=== PATIENT | male | born 1975 | race Caucasian/White ===

== ENCOUNTER 2018-11-12 09:20 | Emergency (ER) | payer OTHER ==
[~2018-11-12] VITALS: Ht 180.3 cm; Wt 72.6 kg
[~2018-11-12 09:20] MED LIST: ANAPROX DS550 MG PO; CLINDAMYCIN150 MG PO; DAYPRO600 M1 PO; FLEXERIL5 MG PO; HYDROCODONE BIT1 T11 PO; KEFLEX500 MG PO; MOTRIN800 MG PO; Motrin,Rufen800 MG PO; NO DAILY MEDS; PERCOCET 325 MG1 TA7; ROBAXIN750 MG PO; TOBRADEX 0.1%-0.5 ML OPH; TRAMADOL HCL50 MG PO; ULTRAM50 MG PO
[2018-11-12] MEDS ORDERED: PREDNISONE20 M1 PO (12:02)
[2018-11-12] MEDS ORDERED: NAPROSYN500 MG PO (12:02)
== END 2018-11-12 10:03 | disposition home or self-care (01) ==
LOC: ED 09:20
DX: G56.01 Carpal tunnel syndrome, right upper limb (principal); F17.200 Nicotine dependence, unspecified, uncomplicated; Z88.0 Allergy status to penicillin

== ENCOUNTER → 2018-12-07 | Outpatient (CLI) | payer OTHER ==
[~2018-12-07] MED LIST changes: +NAPROSYN500 MG PO; +PREDNISONE20 M1 PO
== END | disposition home or self-care (01) ==
LOC: ORTHO 01:18
DX: M25.531 Pain in right wrist (principal); M25.532 Pain in left wrist; R20.0 Anesthesia of skin

== ENCOUNTER 2023-12-26 13:26 | Emergency (ER) | payer OTHER ==
[~2023-12-26] VITALS: Ht 180.3 cm; Wt 79.4 kg
[2023-12-26] MEDS ORDERED: Tdap Vaccine 0.5 ML SYR (Adult Vaccine) IM ONE (16:15)
[2023-12-26] MEDS ORDERED: Lidocaine Hydrochloride 2% 10 ML AMP SC ONE (16:15)
[2023-12-26] MEDS ORDERED: Bacitracin Zinc 14 GM TUBE T ONE (16:15)
[2023-12-26] MEDS ORDERED: SEPTDS PO (17:00)
== END 2023-12-26 17:02 | disposition home or self-care (01) ==
LOC: ED 13:26
DX: S81.011A Laceration without foreign body, right knee, initial encounter (principal); Z88.0 Allergy status to penicillin; Z98.890 Other specified postprocedural states; W29.3XXA Contact with powered garden and outdoor hand tools and machinery, initial encounter; Y93.89 Activity, other specified; Y92.009 Unspecified place in unspecified non-institutional (private) residence as the place of occurrence of the external cause; Y99.8 Other external cause status